=== PATIENT | female | born 1950 | race Caucasian/White ===

== ENCOUNTER 2022-09-14 14:22 | Emergency (ER) | payer MEDICARE ==
[~2022-09-14] VITALS: Ht 165.1 cm; Wt 72.3 kg
[2022-09-14 14:28] VITALS: BP 141/72
[2022-09-14] MEDS ORDERED: acetaminophen 325mg tablet PO ONE (16:00)
== END 2022-09-14 16:56 | disposition home or self-care (01) ==
LOC: ER 14:23
DX: S00.81XA Abrasion of other part of head, initial encounter (principal); W18.39XA Other fall on same level, initial encounter; Y93.89 Activity, other specified; Y92.89 Other specified places as the place of occurrence of the external cause; Y99.8 Other external cause status
CPT/HCPCS: 70450; 72125; 99284